=== PATIENT | female | born 1960 | race Caucasian/White ===

== ENCOUNTER 2021-08-19 14:16 | Emergency (ER) | payer SELFPAY ==
[2021-08-19 14:28] VITALS: BP 185/119; PULSE 88; RESP 16; TEMP 36.6; O2SAT 96; BMI 21.9
--- NOTE | 2021-08-19 14:51 | XR_ITS ---
WS: [id number] Exam: XR chest 1V portable [id number] Date/Time of Exam: 08/19/2021 2:51 PM Reason For Exam: sob Compared to previous study 06/05/2019. Findings: The lungs are clear and fully expanded. Costophrenic angles are sharp. No infiltrates. Bronchovascula r relief appears normal. Cardiac silhouette is unremarkable. Bony elements are intact. XR/XR chest 1V portable [id number] IMPRESSION: Unremarkable chest radiograph.
== END 2021-08-19 16:30 | disposition left against medical advice (07) ==
LOC: ER 14:27
PROVIDERS: PCP Nurse Practitioner Family
DX: Z53.21 Procedure and treatment not carried out due to patient leaving prior to being seen by health care provider (principal)
CPT/HCPCS: 71045

== ENCOUNTER 2021-08-21 09:07 | Emergency (ER) | payer SELFPAY ==
[2021-08-21 09:20] VITALS: BP 166/117; PULSE 94; RESP 18; TEMP 36.2; O2SAT 98; BMI 22.4
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
--- NOTE | 2021-08-21 09:36 | XRR_ITS ---
PROCEDURE INFORMATION: Exam: XR Chest Exam date and time: 08/21/2021 9:36 AM Age: 61 years old Clinical indication: Cough and shortness of breath; Additional info: Cough, SOB, exposed to covid TECHNIQUE: Imaging protocol: XR of the chest. Views: 1 view. COMPARISON: CR XR chest 1V portable [id number] 08/19/2021 2:57 PM FINDINGS: Lungs: Unremarkable. No consolidation. Pleural spaces: Unremarkable. No pleural effusion. No pneumothorax. Heart/Mediastinum: Unremarkable. No cardiomegaly. Bones/joints: Unremarkable. XR/XR chest 1V portable [id number] IMPRESSION: No acute findings. Radiation Dose CTDIVOL = (mGy): DLP = (mGy-cm)
[2021-08-21 09:54] VITALS: BP 168/108; PULSE 77; RESP 18; TEMP 36.8
[2021-08-21] MEDS: ipratropium-albuterol 3 mL Neb INHALATION (10:11)
[2021-08-21 10:12] VITALS: PULSE 94; RESP 18; O2SAT 95
[2021-08-21 10:20] VITALS: PULSE 90; RESP 18; O2SAT 95
[2021-08-21 10:31] LABS: Basophils # 0.1 10^3/uL (0.0-0.1); Basophils % 0.9 %; Eosinophils # 0.2 10^3/uL (0.0-0.8); Eosinophils % 1.9 %; Hematocrit 39.3 % (37.0-47.0); Hemoglobin 13.4 g/dL (11.5-15.3); Lymphocytes # 2.9 10^3/uL (0.8-4.8); Lymphocytes % 31.2 %; Mean Corpuscular HGB Conc 34.1 g/dL (30.0-36.0); Mean Corpuscular Hemoglobin 30.2 pg (28.0-34.0); Mean Corpuscular Volume 88.7 fl (81-99); Mean Platelet Volume 9.9 fL (7.4-10.4); Monocytes # 0.6 10^3/uL (0.2-0.9); Monocytes % 6.9 %; Neutrophils # 5.41 10^3/uL (1.8-7.7); Neutrophils % 58.9 %; Nucleated Red Blood Cells % 0 %; Platelet Count 442 10^3/cmm (130-400); Red Blood Count 4.43 10^6/uL (4.1-5.3); Red Cell Distribution Width 12.6 % (12.1-15.1); White Blood Count 9.2 10^3/uL (4.0-10.0)
[2021-08-21 11:17] LABS: SARS Covid-2 Antigen Negative (Negative)
[2021-08-21 11:22] LABS: Alanine Aminotransferase 13 U/L (0-33); Alkaline Phosphatase 75 IU/L (35-105); Anion Gap 15.8 (5-19); Aspartate Amino Transferase 16 U/L (0-32); Blood Urea Nitrogen 9 mg/dL (6-20); C Reactive Protein 0.3 mg/L (0.0-4.9); Calcium 8.8 mg/dL (8.5-10.5); Carbon Dioxide 23 mmol/L (22-29); Chloride 103 mmol/L (98-107); Globulin 2.6 g/dL (1.3-4.6); Glomerular Filtration Rate 126.3 mL/min (90-130); Glucose 96 mg/dL (65-115); Osmolality Calculated 285 mOsm/kg (285-295); Potassium 3.8 mmol/L (3.5-5.1); Sodium 138 mmol/L (136-145); Total Bilirubin 0.4 mg/dL (0.15-1.2); Total Protein 6.6 g/dL (6.6-8.7)
[2021-08-21 11:29] LABS: Procalcitonin 0.03 ng/mL (0-0.5)
[2021-08-21] MEDS: doxycycline 100 mg Tablet PO (11:58)
[2021-08-21 12:04] VITALS: BP 168/108; PULSE 81; RESP 20; O2SAT 98
== END 2021-08-21 12:07 | disposition home or self-care (01) ==
PROVIDERS: Emergency Provider Emergency Medicine; PCP Nurse Practitioner Family
DX: J44.1 Chronic obstructive pulmonary disease with (acute) exacerbation (principal)
CPT/HCPCS: 71045; 80053; 84145; 85025; 86140; 87426; 94640; 96374; 99284; J2930

== ENCOUNTER 2021-09-17 13:28 | Emergency (ER) | payer SELFPAY ==
[2021-09-17 13:44] VITALS: BP 191/103; PULSE 87; RESP 28; O2SAT 99; BMI 22.4
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
--- NOTE | 2021-09-17 13:55 | XRR_ITS ---
PROCEDURE INFORMATION: Exam: XR Chest Exam date and time: 09/17/2021 1:55 PM Age: 61 years old Clinical indication: Cough; Additional info: Dyspnea/cough TECHNIQUE: Imaging protocol: XR of the chest. Views: 1 view. COMPARISON: CR (CHEST, ) 08/21/2021 9:44 AM FINDINGS: Lungs: Right hilar to lower lobe atelectasis versus minimal infiltrate. Pleural spaces: Unremarkable. No pleural effusion. No pneumothorax. Heart/Mediastinum: Borderline cardiomegaly. Bones/joints: Unremarkable. XR/XR chest 1V portable [id number] IMPRESSION: 1. Right hilar to lower lobe atelectasis versus minimal infiltrate. 2. Borderline cardiomegaly.
--- NOTE | 2021-09-17 13:55 | CTR_ITS ---
PROCEDURE INFORMATION: Exam: CTA Chest With Contrast Exam date and time: 09/17/2021 1:55 PM Age: 61 years old Clinical indication: Sternal or substernal pain; Abdominal pain; Epigastric; Additional info: Chest/abd tearing pain looking at the aorta TECHNIQUE: Imaging protocol: Computed tomographic angiography of the chest with contrast. 3D rendering (Not supervised by radiologist): MIP and/or 3D reconstructed images were created by the technologist. Radiation optimization: All CT scans at this facility use at least one of these dose optimization techniques: automated exposure control; mA and/or kV adjustment per patient size (includes targeted exams where dose is matched to clinical indication); or iterative reconstruction. Contrast material: OMNI 350; Contrast volume: 75 ml; Contrast route: INTRAVENOUS (IV); COMPARISON: CR (CHEST, ) 09/17/2021 2:30 PM RADIATION DOSE METRICS: Total DLP (mGy-cm): 1012.39 FINDINGS: Pulmonary arteries: Normal. No pulmonary emboli. Aorta: Unremarkable. Ascending aorta is mildly prominent measuring up to 3.3 cm. No aortic dissection. Lungs: Minimal bilateral dependent atelectasis. Right upper lobe somewhat focal area of somewhat ground-glass airspace opacification measuring up to 12 mm. Pleural spaces: Unremarkable. No pneumothorax. No pleural effusion. Heart: Coronary artery atherosclerotic calcifications. Lymph nodes: Prominent subcentimeter short axis mediastinal lymph nodes, nonspecific. Bones/joints: Unremarkable. No acute fracture. Soft tissues: Unremarkable. (Reference: Larry) REFERENCES: Jaminhomika H, et al. Guidelines for Management of Incidental Pulmonary Nodules Detected on CT Images: From the Fleischner Society 2017. Radiology. 2017;284(1):228-243. PROCEDURE INFORMATION: Exam: CT Angiography Abdomen With Contrast Exam date and time: 09/17/2021 1:55 PM Age: 61 years old Clinical indication: Sternal or substernal pain; Abdominal pain; Epigastric; Additional info: Chest/abd tearing pain looking at the aorta TECHNIQUE: Imaging protocol: Computed tomographic angiography images of the abdomen with intravenous contrast material. 3D rendering (Not supervised by radiologist): MIP and/or 3D reconstructed images were created by the technologist. Radiation optimization: All CT scans at this facility use at least one of these dose optimization techniques: automated exposure control; mA and/or kV adjustment per patient size (includes targeted exams where dose is matched to clinical indication); or iterative reconstruction. Contrast material: OMNI 350; Contrast volume: 75 ml; Contrast route: INTRAVENOUS (IV); COMPARISON: CR (CHEST, ) 09/17/2021 2:30 PM RADIATION DOSE METRICS: Total DLP (mGy-cm): 1012.39 FINDINGS: Aorta: No aortic aneurysm. No aortic dissection. Celiac trunk and mesenteric arteries: No occlusion or significant stenosis. Renal arteries: No occlusion or significant stenosis. Liver: Normal. No mass. Gallbladder and bile ducts: Normal. No calcified stones. No ductal dilation. Pancreas: Normal. No ductal dilation. Spleen: Normal. No splenomegaly. Adrenals: Normal. No mass. Kidneys and ureters: Normal. No hydronephrosis. Stomach and bowel: Constipation. Lymph nodes: Unremarkable. No enlarged lymph nodes. Intraperitoneal space: Unremarkable. No free air. No significant fluid collection. Bones/joints: Unremarkable. No acute fracture. No dislocation. Soft tissues: Unremarkable. CT/CT angio chest abdomen IMPRESSION: 1. Ascending aorta is mildly prominent measuring up to 3.3 cm. Negative for aortic rupture or dissection. 2. Prominent subcentimeter short axis mediastinal lymph nodes, nonspecific. 3. Coronary artery atherosclerotic calcifications. 4. Minimal bilateral dependent atelectasis. 5. Right upper lobe somewhat focal area of somewhat ground-glass airspace opacification measuring up to [address] Chest at 6-12 months to confirm persistence of the nodule, then CT Chest at 3 years and 5 years. IMPRESSION: 1. Abdominal aorta intact, negative for acute inflammatory process in the abdomen or pelvis. 2. Constipation.
[2021-09-17 14:04] LABS: Basophils # 0.1 10^3/uL (0.0-0.1); Basophils % 0.8 %; Eosinophils # 0.3 10^3/uL (0.0-0.8); Eosinophils % 2.4 %; Hematocrit 36.9 % (37.0-47.0); Hemoglobin 12.3 g/dL (11.5-15.3); Lymphocytes # 4.1 10^3/uL (0.8-4.8); Lymphocytes % 35.5 %; Mean Corpuscular HGB Conc 33.3 g/dL (30.0-36.0); Mean Corpuscular Hemoglobin 30.5 pg (28.0-34.0); Mean Corpuscular Volume 91.6 fl (81-99); Mean Platelet Volume 10.3 fL (7.4-10.4); Monocytes # 0.5 10^3/uL (0.2-0.9); Monocytes % 4.3 %; Neutrophils # 6.48 10^3/uL (1.8-7.7); Neutrophils % 56.7 %; Nucleated Red Blood Cells % 0 %; Platelet Count 466 10^3/cmm (130-400); Red Blood Count 4.03 10^6/uL (4.1-5.3); Red Cell Distribution Width 12.8 % (12.1-15.1); White Blood Count 11.4 10^3/uL (4.0-10.0)
[2021-09-17 14:16] LABS: Alanine Aminotransferase 13 U/L (0-33); Albumin Level 4.4 g/dL (3.5-5.2); Alkaline Phosphatase 73 IU/L (35-105); Anion Gap 21.5 (5-19); Aspartate Amino Transferase 20 U/L (0-32); Blood Urea Nitrogen 8 mg/dL (6-20); Calcium 8.8 mg/dL (8.5-10.5); Carbon Dioxide 19 mmol/L (22-29); Chloride 105 mmol/L (98-107); Globulin 1.9 g/dL (1.3-4.6); Glomerular Filtration Rate 102.3 mL/min (90-130); Glucose 124 mg/dL (65-115); Osmolality Calculated 294 mOsm/kg (285-295); Potassium 3.5 mmol/L (3.5-5.1); Sodium 142 mmol/L (136-145); Total Bilirubin 0.3 mg/dL (0.15-1.2); Total Protein 6.3 g/dL (6.6-8.7)
[2021-09-17 15:06] VITALS: BP 164/95; PULSE 80; RESP 21; O2SAT 99
[2021-09-17 15:13] LABS: Add Urine Microscopic? NO; Charge for UA Resulting for Rev
[2021-09-17 15:16] LABS: Bilirubin Urine Neg (Negative); Blood Urine Neg (Negative); Glucose Urine UA Norm (Normal); Ketones Urine Negative (Negative); Leukocyte Esterase Urine Negative (Negative); Nitrate Urine Negative (Negative); Protein Urine Neg (Negative); Sulfosalicylic Acid Urine Negative (Negative); Urine Appearance Clear (CLEAR); Urine Color Straw (Yellow); Urobilinogen Urine Norm (Negative); pH Urine 8 (5-7)
[2021-09-17 15:19] LABS: Troponin(5th) Baseline 10 ng/L (0-10)
[2021-09-17] MEDS: iohexol 350 mg/mL 100 mL Btl IV (15:28)
[2021-09-17 16:23] LABS: Troponin 5 2HR 8.39 ng/L (0-10)
[2021-09-17 16:33] LABS: Troponin 5 2HR Delta -1.61 ABS# (0-10)
--- NOTE | 2021-09-17 17:39 | PC.NURSE ---
[facility] was able to contact pt and verify IV was taken out and pt was safe.
== END 2021-09-17 17:10 | disposition home or self-care (01) ==
PROVIDERS: Emergency Provider Family Medicine
DX: R07.89 Other chest pain (principal); F17.210 Nicotine dependence, cigarettes, uncomplicated
CPT/HCPCS: 71045; 71275; 74175; 80053; 81003; 84484; 85025; 99283; Q9967

== ENCOUNTER 2022-09-13 12:42 | Emergency (ER) | payer SELFPAY ==
[2022-09-13 12:53] VITALS: BP 210/119; PULSE 95; RESP 15; TEMP 36.8; O2SAT 95; BMI 20.1
--- NOTE | 2022-09-13 13:07 | XRR_ITS ---
PROCEDURE INFORMATION: Exam: XR Right Tibia and Fibula Exam date and time: 09/13/2022 1:13 PM Age: 62 years old Clinical indication: Injury or trauma; Fall; Blunt trauma; Lower leg; Right; Patient HX: RT tib fib pain discoloration injury about 2 weeks ago; Additional info: Fall injury TECHNIQUE: Imaging protocol: Radiologic exam of the Right tibia and fibula. Views: 2 views. COMPARISON: No relevant prior studies available. FINDINGS: Bones/joints: Osseous structures are intact. No fracture or malalignment. Visualized joint surfaces are preserved. Soft tissues: Small rounded nodular calcification within the anterior soft tissues at the level of mid tibia likely longstanding and possibly vascular nature. XR/XR tibia fibula RT 2V [id number] IMPRESSION: Negative exam. No acute bony abnormalities.
--- NOTE | 2022-09-13 13:07 | USCV_ITS ---
Christy Whittaker Age: 62 Gender: F : 1960 Exam Date: 09/13/2022 13:32 Ordering Phys: Ronny Perrin Technologist: JESUS MANUEL Exam Location: [facility] [place]_ Indication: Rt leg nodule, swelling PROCEDURES: Venous duplex imaging was performed in only the right lower extremity. The following venous structures were evaluated: common femoral vein, profunda vein, proximal portion of the greater saphenous vein, superficial femoral vein, and the popliteal vein. In addition, the posterior tibial and peroneal trunk were evaluated. Serial compression, augmentation maneuvers, and spectral Doppler flow evaluation were performed. FINDINGS: No evidence of DVT seen in any vessel visualized at this time. Edematous area noted in images CONCLUSIONS No evidence of right lower extremity DVT. Soft tissue edema inner Right knee area of concern Felice Ayala MD (Electronically Signed) Final Date: 13 September 2022 15:23 S
--- NOTE | 2022-09-13 13:21 | W.ED.EXTPRO ---
HPI - Extremity Problem General: Chief complaint: Extremity Injury, Lower Stated complaint: fall, right leg injury Time Seen by Provider: 09/13/22 12:59 History of Present Illness: Patient is a 62-year-old female comes to the ED with right leg pain and swelling. Patient states that 10 days ago she had a fall injury where her lower right leg hit the door frame. Since fall she has been having right lower leg pain and ecchymosis. She has a very sore tender nodule that popped up within the last 5 days. She is able to ambulate on right leg with minimal pain. Patient is not on any blood thinners. Associated symptoms: Deny chest pain, fever(s) or rash Review of Systems Const: Denies: fever(s), chills or fatigue Eyes: Denies: change in vision or eye discomfort ENMT: Denies: throat pain, odynophagia, nasal discharge or nasal congestion Card: Denies: chest pain, palpitations, edema, swelling of feet/ankles, dyspnea on exertion or orthopnea Resp: Denies: dyspnea, productive cough or non-productive cough GI: Denies: abdominal pain, nausea, vomiting, diarrhea, constipation or hematochezia : Denies: flank pain, dysuria or hematuria Musc: Reports: extremity pain (Right lower leg) and extremity swelling (Right lower leg); Denies: neck pain or back pain Skin/Breast: Denies: rash or new lesions Neuro: Denies: headache(s), numbness in extremities or weakness in extremities PFS ED PFSH: Medical History (Updated 09/14/22 @ 08:13 by OSCAR Chan) Atypical chest pain GERD (gastroesophageal reflux disease) No pertinent family history Social History Smoking and tobacco status: current every day smoker Alcohol intake: never Physical Exam Const: COMMON NORMALS: patient oriented x3 and alert GENERAL APPEARANCE: cooperative HENMT: COMMON NORMALS: normocephalic HEAD & SCALP: normocephalic MOUTH: Normal oral and palatal mucosa present THROAT: posterior oropharynx normal and uvula midline Neck/C-Spine: COMMON NORMALS: supple GENERAL: Yes normal visual inspection Resp: COMMON NORMALS: normal respiratory effort, No retractions, No use of accessory muscles and clear to auscultation bilaterally AUSCULTATION: clear to auscultation bilaterally Cardio: COMMON NORMALS: regular rate, regular rhythm, S1 normal heart sound present, S2 normal heart sound present, No gallops present (Cardio), No clicks present (Cardio), No murmurs present (Cardio) and Peripheral pulses 2+ throughout RATE: regular rate RHYTHM: regular rhythm HEART SOUNDS: S1 normal heart sound present and S2 normal heart sound present PERIPHERAL PULSES: Peripheral pulses 2+ throughout GI: COMMON NORMALS: Normal to inspection, nondistended, normoactive bowel sounds present, Soft to palpation, non-tender and no masses PALPATION: Yes Soft to palpation : COMMON NORMALS: Yes no CVA tenderness BLADDER/KIDNEY EXAM: Yes no CVA tenderness Back/Pelvis: COMMON NORMALS: no CVA tenderness Extremity: COMMON NORMALS: full ROM, no calf tenderness and no pedal edema NARRATIVE EXTREMITY EXAM: Patient's right lower leg?extensive ecchymosis and some mild swelling. Patient has a palpable tender nodule on the superior and medial aspect of lower leg. Neurovascular intact. Neuro: COMMON NORMALS: patient oriented x3 SENSORIUM/ORIENTATION: Yes alert GAIT: Yes Normal gait present Skin: GENERAL SKIN EXAM: dry skin Course Vital Signs: Vital signs: Vital Signs Temperature 98.3 F 09/13/22 12:53 Pulse Rate 95 09/13/22 12:53 Respiratory Rate 15 09/13/22 12:53 Blood Pressure 210/119 09/13/22 12:53 Pulse Oximetry 95 09/13/22 12:53 Oxygen Delivery Me thod 09/13/22 12:53 MDM - Extremity (Nontraumatic) Medical Decision Making Patient is a 62-year-old female comes to the ED with right leg pain and swelling. Patient states that 10 days ago she had a fall injury where her lower right leg hit the door frame. Since fall she has been having right lower leg pain and ecchymosis. She has a very sore tender nodule that popped up within the last 5 days. Vitals are stable. Exam shows right lower leg with extensive ecchymosis and some mild swelling. Patient has palpable tender nodule on the superior and medial aspect of lower leg. No calf tenderness and no pedal edema. X-ray of tib-fib showed no acute findings. Ultrasound venous duplex of right lower extremity showed no DVTs. Patient was diagnosed with contusion of right leg and was stable for discharge home. Return to ED precautions given. Patient understood agree with plan. Lab Data Radiology Impressions Tibia/Fibula X-Ray 09/13/22 13:07 IMPRESSION: Negative exam. No acute bony abnormalities. Discharge Plan Discharge Patient Disposition: Home Clinical Impression: Contusion of leg, right Qualifiers: Encounter type: initial encounter Qualified Code(s): S80.11XA - Contusion of right lower leg, initial encounter Condition: Stable Prescriptions: New ibuprofen 600 mg tablet 600 mg PO TID PRN (Reason: pain) Qty: 20 0RF Discharge Orders: Discharge ED (Routine); Ordered 09/13/22 Ordered By: Ronny Perrin Discharge Diet: Regular Discharge Activity: Increase activity as tolerated Activity Restrictions/Additional Instructions: Follow-up with medical provider as directed in the next 5 to 7 days for reevaluation. Rapid right lower leg with [place] wrap to compress and help with swelling and elevated throughout the day as well. Take medications as prescribed. Return to the ER or your medical provider if condition worsens. Please read and understand discharge instructions. Thank you for choosing [facility] for your healthcare needs today. Please realize this is an emergency room and that we are providing you with a medical screening exam and this may not be complete and all inclusive of all the testing and or work up that you may need to determine your ailment or severity of your illness. It is very important that you follow up as instructed or that you return to the Emergency Department should you have concerns or if your condition changes or worsens in any way. Coding Level of Care Code ED Staff Command And Control Officer for Arian Justin Exam Comprehensive
[2022-09-13] MEDS: HYDROcodone-acetaminophen 5-325 mg Tablet 1 TAB PO (13:50)
== END 2022-09-13 14:34 | disposition home or self-care (01) ==
PROVIDERS: Emergency Provider Physician Assistant
DX: S80.11XA Contusion of right lower leg, initial encounter (principal); F17.210 Nicotine dependence, cigarettes, uncomplicated; W19.XXXA Unspecified fall, initial encounter
CPT/HCPCS: 73590; 93971; 99284

== ENCOUNTER → 2025-02-17 15:03 | Outpatient (BNVA) | payer MEDICAID, OTHER, SELFPAY | DX: E11.9 Type 2 diabetes mellitus without complications (principal) | CPT/HCPCS: 80053; 81000; 82043; 83036 ==

== ENCOUNTER → 2025-07-01 09:13 | Outpatient (BNVA) | payer MEDICAID, SELFPAY | DX: E11.9 Type 2 diabetes mellitus without complications (principal) | CPT/HCPCS: 80053; 80061; 83036 ==

== ENCOUNTER → 2025-07-31 12:52 | Outpatient (BNVA) | payer MEDICAID, SELFPAY | PROVIDERS: Visit Provider Emergency Medicine | DX: R39.198 Other difficulties with micturition (principal); R39.9 Unspecified symptoms and signs involving the genitourinary system | CPT/HCPCS: 81000; 87086 ==